=== PATIENT | female | born 1975 ===

== ENCOUNTER → 2021-05-31 14:04 | Outpatient (BNVA) | payer OTHER, SELFPAY | PROVIDERS: PCP Internal Medicine; Visit Provider Nurse Practitioner Family | DX: M47.22 Other spondylosis with radiculopathy, cervical region (principal); M47.816 Spondylosis without myelopathy or radiculopathy, lumbar region; S16.1XXD Strain of muscle, fascia and tendon at neck level, subsequent encounter | CPT/HCPCS: 99202 ==

== ENCOUNTER → 2023-01-02 15:15 | Outpatient (BNVA) | payer OTHER, SELFPAY | PROVIDERS: PCP Internal Medicine; Visit Provider Physician Assistant | DX: M47.816 Spondylosis without myelopathy or radiculopathy, lumbar region (principal); M47.22 Other spondylosis with radiculopathy, cervical region | CPT/HCPCS: 99212 ==

== ENCOUNTER 2023-03-09 10:10 | Outpatient (REF) | payer OTHER, SELFPAY ==
--- NOTE | ~2023-03-09 | MR_ITS ---
EXAMINATION: MR LUMBAR SPINE WITHOUT CONTRAST CLINICAL INFORMATION: Left leg pain. COMPARISON: MRI dated 01/17/2019. TECHNIQUE: Multiplanar, multisequence imaging was obtained. FINDINGS: VERTEBRAL BODIES AND PARASPINAL STRUCTURES: The marrow signal is within normal limits. There is further moderate loss of disc height with minimal edematous endplate changes at the L4-L5 level compared to prior imaging. No compression fractures or new subluxations are visible. The paraspinal soft tissues are normal. CONUS MEDULLARIS AND CAUDA EQUINE: The distal cord, conus tip, and cauda equina nerve roots are normal. SPINAL LEVELS: L1-L2: No disc pathology. No central canal stenosis or foraminal narrowing. L2-L3: Minimal disc bulge without central canal stenosis or foraminal encroachment. L3-L4: No disc pathology. No central canal stenosis or foraminal narrowing. L4-L5: Moderate loss of disc height and diffuse disc bulge with mild facet arthropathy. No central canal stenosis. Bulging disc and endplate spurring result in moderate foraminal encroachment, worse on the left side, and progressed since the prior study. L5-S1: Increased size of a broad-based central to right subarticular zone disc protrusion mildly impressing upon the ventral thecal sac and resulting in slightly increased mass effect upon the right S1 nerve root. Facet arthropathy without central canal stenosis. Mild left foraminal narrowing. Bulging disc contributes to moderate right foraminal encroachment. MR/MR lumbar spine wo con IMPRESSION: 1. Progressed spondylosis at the L4-L5 level with further moderate loss of disc height, development of a diffuse disc bulge, and worsened moderate foraminal narrowing, more so on the left side. Bulging disc contacts the exiting L4 nerve roots bilaterally. 2. Increased size of a shallow, broad-based central to right subarticular zone disc protrusion at L5-S1 with slightly increased mass effect upon the right S1 nerve root. Moderate right foraminal narrowing.
== END 2023-03-09 10:11 | disposition home or self-care (01) ==
LOC: HO.MRI 10:10
PROVIDERS: PCP Internal Medicine; Visit Provider Physician Assistant
DX: M47.816 Spondylosis without myelopathy or radiculopathy, lumbar region (principal)
CPT/HCPCS: 72148

== ENCOUNTER 2023-04-03 14:51 | Outpatient (AMB) | payer OTHER, SELFPAY ==
--- NOTE | 2023-04-03 14:55 | HO.SPINEOV ---
Intake Intake Visit Reasons: discuss surgical options Intake Note: Ms. Lombardi is here today to discuss MRI results and surgical options. Gang Leader Required: No Allergies varenicline [From Chantix] Allergy (Unknown, Verified 05/31/21 13:47) Hives Assessment & Plan Assessment & Plan (1) Lumbar radiculopathy: Code(s): M54.16 - Radiculopathy, lumbar region Plan Cailin is a y/o female who is previously known to our service after having a C3 corpectomy with C2-4 anterior plating. During her last office visit she stated she continued to have cervical neck pain with radicular type symptoms down her right arm but had not yet had her cervical injections completed. Today she comes in after having her C6 TFE, and states that her pain has modestly reduced in her cervical spine and feels that it is now tolerable. What she is more concerned about today is her left-sided radiculopathy. She states that this leg pain with associated paresthesias starts in her lower back and radiates down her posterior buttock and a nonspecific L5-S1 distribution affecting both the thigh, the groin, and the posterior leg, behind the knee, down to the bottom of the foot. She states that the symptoms have been significantly affecting her activities of daily living, and make it hard for her to accomplish basic chores around the house and get in and out of vehicles. After reviewing the MRI with BRANDON Morris we would like her to have a left-sided L5 TFE injection performed to rule in/out a L5 radiculopathy before we even consider surgical options. Her case will be discussed with Dr. Holly next week when we review cases together. Total amount of time spent in this visit was 35 minutes in discussion of symptoms, MRI lumbar spine imaging results and subsequent plan of care Anurag Holly MD,PhD [facility] Coding Level of Care Code Est Pt Level 4 (72991) Diagnoses Lumbar radiculopathy M54.16
== END 2023-04-03 15:12 | disposition home or self-care (01) ==
PROVIDERS: PCP Internal Medicine; Visit Provider Physician Assistant
DX: M54.16 Radiculopathy, lumbar region (principal)
CPT/HCPCS: 99214

== ENCOUNTER → 2023-04-03 14:51 | Outpatient (BNVA) | payer OTHER, SELFPAY | PROVIDERS: PCP Internal Medicine; Visit Provider Physician Assistant | DX: M54.16 Radiculopathy, lumbar region (principal) | CPT/HCPCS: 99212 ==

== ENCOUNTER 2023-07-02 14:25 | Outpatient (AMB) | payer OTHER, SELFPAY ==
--- NOTE | 2023-07-02 15:09 | MHC.OFFVIS ---
Intake Intake Visit Reasons: follow up after injection Allergies varenicline [From Chantix] Allergy (Unknown, Verified 05/31/21 13:47) Hives Assessment & Plan Assessment & Plan (1) Lumbar radiculopathy: Code(s): M54.16 - Radiculopathy, lumbar region Plan Dear Dr Nguyen, I saw Cailin in follow-up today. Unfortunately the L5 block did not give her any relief. She still has the severe intense pain radiating from her low back down the back of her leg and into her groin. Her last MRI done about 3 months ago only showed some mild degenerative disc disease with some borderline foraminal stenosis. We are hoping that the stenosis was the source of her pain but it appears now that is likely not. I reviewed again with her, I do not see anything significant compressing that area. She is limping in the office today and I re-examined her and she is having a lot of pain along the SI joint region to palpation as well as tenderness on compression tests and JUAN testing. I am going to repeat the MRI just as a precaution, but I think we should consider the possibility that this could be an SI joint inflammation. She does had all of a lot of trouble sitting on the left side and sleeping on the left side. Car rides or also very difficult which is somewhat typical of SI joint problems. I would like to send her for an SI joint block with your office. If that does not give her any significant improvement, I think this could be some kind of inflammatory process that is causing radiculitis. I can recall from her previous cervical fusion that we did on her that she had of lot of difficulty with postoperative radiculopathy despite her imaging looking excellent so I think she may have some overlapping features of either fibromyalgia or an undiagnosed inflammatory condition. Total amount of time spent in this visit was 20 minutes in discussion of symptoms, lumbar MRI imaging results and subsequent plan of care Rohit Holly MD,PhD [facility] Orders: Orders MR lumbar spine wo con Today M54.16 - Radiculopathy, lumbar region Coding Level of Care Code Est Pt Level 3 (12617) Diagnoses Lumbar radiculopathy M54.16
== END 2023-07-02 15:43 | disposition home or self-care (01) ==
PROVIDERS: PCP Internal Medicine; Visit Provider Physician Assistant
DX: M54.16 Radiculopathy, lumbar region (principal)
CPT/HCPCS: 99213

== ENCOUNTER → 2023-07-02 14:25 | Outpatient (BNVA) | payer OTHER, SELFPAY | PROVIDERS: PCP Internal Medicine; Visit Provider Physician Assistant | DX: M54.16 Radiculopathy, lumbar region (principal) | CPT/HCPCS: 99212 ==

== ENCOUNTER 2023-08-04 17:05 | Outpatient (REF) | payer OTHER, SELFPAY ==
--- NOTE | ~2023-08-04 | MR_ITS ---
EXAMINATION: MR LUMBAR SPINE WITHOUT CONTRAST CLINICAL INFORMATION: A 47-year-old with radiculopathy, lumbar region. Self-reported severe low back and left leg pain, chronic. COMPARISON: 03/09/2023 MRI. TECHNIQUE: MRI of the lumbar spine was obtained using routine sequences without contrast. FINDINGS: CORONAL ALIGNMENT: Normal. SAGITTAL ALIGNMENT: Normal. LUMBOSACRAL JUNCTION: Normal. There are 5 [id number] lumbar-type vertebral bodies. VERTEBRAL BODIES: Stable vertebral body heights. No interval compression fractures. DISC SPACES AND ENDPLATES: [id number] intervertebral disc space height loss at L4-L5, similar in appearance to the previous exam, with mild disc desiccation. There is disc desiccation at L5-S1, with mild disc volume loss at this level, stable in appearance. Remaining lumbar vertebral discs demonstrate normal height and signal with no significant spondylosis. Endplates appear intact. There is minimal disc space height loss with mild anterior marginal endplate spurring at T11-T12, with a small Schmorl's node along the inferior endplate of T11, unchanged. SPINAL CANAL: No abnormal developmental findings. BONE MARROW: No significant marrow-replacing process or bone marrow edema. CONUS MEDULLARIS: Terminates at L1-L2. Morphology and signal is normal. INTRADURAL NERVE ROOTS: Within normal limits. L5-S1: Broad-based central to right subarticular disc protrusion again noted, with encroachment on the ventral dural sac and both S1 nerve root sleeves, right more than left, stable in appearance. Slight impingement on the right traversing S1 nerve root is stable. No significant central spinal canal stenosis. Mild facet arthropathy bilaterally with small bilateral facet joint effusions, stable in appearance. There is mild foraminal narrowing bilaterally, stable in appearance. L4-L5: Diffuse disc bulging again noted with mild flattening of the ventral dural sac. There is mild bilateral facet arthropathy, stable in appearance, without significant spinal canal stenosis. Mild foraminal narrowing is noted bilaterally, with disc bulging abutting the exiting L4 nerve roots, right more than left, unchanged in appearance. L3-L4: No significant disc bulge or herniation. Mild facet arthrosis noted bilaterally. No interval change. No canal or foraminal stenosis. L2-L3: No significant disc bulge or herniation. Mild facet hypertrophic changes on the left, stable in appearance. No canal or foraminal stenosis. L1-L2: Normal annular contour. No facet arthrosis, canal, or foraminal stenosis. T12-L1: Normal annular contour. No facet arthrosis, canal, or foraminal stenosis. PARAVERTEBRAL AND INCLUDED EXTRASPINAL SOFT TISSUES: The visualized paravertebral soft tissues and included retroperitoneal structures are unremarkable within the limitations of the exam. MR/MR lumbar spine wo con IMPRESSION: 1. Stable discogenic degenerative changes at L4-L5 and L5-S1, with stable broad-based central to right subarticular disc protrusion at L5-S1, with encroachment on the S1 nerve root sleeves, right more than left, stable in appearance, with stable mild foraminal narrowing bilaterally at this level. 2. Stable disc bulging at L4-L5 with stable bilateral facet arthropathy and mild foraminal narrowing bilaterally, with disc bulge abutting the exiting L4 nerve roots, right more than left, unchanged in appearance. 3. Stable mild facet arthropathy at L3-L4. 4. Stable mild spondylosis and disc degenerative change at T11-T12.
== END 2023-08-04 17:06 | disposition home or self-care (01) ==
LOC: HO.MRI 17:05
PROVIDERS: Visit Provider Physician Assistant
DX: M54.16 Radiculopathy, lumbar region (principal)
CPT/HCPCS: 72148